=== PATIENT | male | born 1985 ===

== ENCOUNTER 2018-07-13 18:02 | Emergency (ER) | payer MEDICAID ==
[2018-07-13 18:04] VITALS: BMI 29.0
[2018-07-13] MEDS ORDERED: Sodium Chloride 0.9% 1,000 ML IV STA (18:29)
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
[2018-07-13 18:31] VITALS: RESP 18; TEMP 98.8; O2SAT 98
[2018-07-13 19:10] LABS: BASO # 0.02 K/mm3 (0.0-2.0); BASO % 0.2 % (0.0-3.0); EOS # 0.1 (0.0-0.7); GRAN # 8.56 (1.4-6.5); GRAN % 76.2 % (50.0-68.0); HEMOGLOBIN 13.5 g/dL (14.0-18.0); LYMPH % 17.3 % (22.0-35.0); MEAN CELL VOLUME 83.5 fl (80.0-105.0); MEAN CORPUSCULAR HEMOGLOBIN 27.8 pg (25.0-35.0); MEAN CORPUSCULAR HGB CONC 33.3 g/dl (31.0-37.0); MEAN PLATELET VOLUME 9.3 fl (7.0-11.0); MONO # 0.6 (0.1-0.6); MONO % 5.3 % (1.0-6.0); RBC 4.86 10^6/uL (3.5-6.1); RED CELL DISTRIBUTION WIDTH 13.2 % (11.5-14.5); WHITE BLOOD COUNT 11.2 10^3/uL (4.5-11.0)
[2018-07-13 19:22] LABS: ACETAMINOPHEN < 10.0 ug/ml (10.0-20.0); ALBUMIN 4.6 g/dL (3.0-4.8); BLOOD UREA NITROGEN 16 mg/dL (7-21); CALCIUM 9.8 mg/dL (8.4-10.5); GFR NON-AFRICAN AMERICAN > 60; SALICYLATE < 1 mg/dL (2.0-20.0)
[2018-07-13 19:23] LABS: ALB/GLOB RATIO 1.5 (1.1-1.8); ALT/SGPT 29 U/L (7-56); AST/SGOT 27 U/L (17-59)
[2018-07-13] MEDS ORDERED: TDAP Vaccine 0.5 mL Syr IM ONE (20:22)
--- NOTE | 2018-07-13 21:23 | ED PDOC ---
Physical Exam Vital Signs Temp Pulse Resp BP Pulse Ox 07/13/18 18:22 98.8 F 124 H 18 169/88 H 98 Medical Decision Making ED Course and Treatment: 07/13/18 21:00 Case endorsed to me by Dr. Gross, pending CT, urine drug screen, reassessment, and disposition. 07/13/18 22:16 CT Head: BRAIN No acute intraparenchymal hemorrhage. No mass lesion. No CT evidence for acute territorial infarct. No midline shift or extra-axial collections. VENTRICLES: No hydrocephalus. ORBITS: The orbits are unremarkable. SINUSES AND MASTOIDS: The paranasal sinuses and mastoid air cells are clear. BONES: No fracture. SOFT TISSUES: Unremarkable. IMPRESSION: No acute intracranial abnormality. Electronically signed on Jul 13, 2018 10:08:56 PM EST by: Rolo Ferrara M.D., PHANI Certified By ABR & [employer] Fellowship Trained MRI and CT Specialist CT Maxillofacial: BONES: No acute fracture or aggressive appearing osseous lesion. The mandible is intact. SOFT TISSUES: The soft tissues are unremarkable. SINUSES: The sinuses are clear. ORBITS: The orbits are normal. No retrobulbar hematoma or mass. IMPRESSION: Unremarkable maxillofacial CT. Electronically signed on Jul 13, 2018 10:09:54 PM EST by: Rolo Ferrara M.D., PHANI Certified By ABR & [employer] Fellowship Trained MRI and CT Specialist Re-evaluation Time: 05:30 Reassessment Condition: Re-examined, Improved - Lab Interpretations Lab Results: 07/13/18 19:01 07/13/18 19:01 Lab Results 07/13/18 19:01: Alcohol, Quantitative < 10 07/13/18 19:01: Salicylates < 1 L, Acetaminophen < 10.0 L 07/13/18 19:01: Sodium 141, Potassium 3.9, Chloride 107, Carbon Dioxide 28, Anion Gap 11, BUN 16, Creatinine 1.1, Est GFR ( Amer) > 60, Est GFR (Non- Af Amer) > 60, Random Glucose 100, Calcium 9.8, Total Bilirubin 0.4, AST 27, ALT 29, Alkaline Phosphatase 63, Total Protein 7.6, Albumin 4.6, Globulin 3.0, Albumin/Globulin Ratio 1.5 07/13/18 19:01: WBC 11.2 H, RBC 4.86, Hgb 13.5 L, Hct 40.6 L, MCV 83.5, MCH 27.8, MCHC 33.3, RDW 13.2, Plt Count 243, MPV 9.3, Gran % 76.2 H, Lymph % (Auto) 17.3 L, [place] % (Auto) 5.3, Eos % (Auto) 1.0 L, Baso % (Auto) 0.2, Gran # 8.56 H, Lymph # (Auto) 2.0, [place] # (Auto) 0.6, Eos # (Auto) 0.1, Baso # (Auto) 0.02 - RAD Interpretation Radiology Orders: 07/13/18 18:16 ORBITS/ FACIALS W/O CONTRAST [CT] Stat 07/13/18 20:47 HEAD W/O CONTRAST [CT] Stat 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 Ulcer: No History Surgical Site Infection Following: None - Disposition Have Diagnosis and Disposition been Completed?: Yes Diagnosis: Agitation, Laceration of face, Substance abuse Disposition: HOME/ ROUTINE Disposition Time: 05:30 Condition: GOOD Discharge Instructions (ExitCare): Laceration Repair With Glue (DC), Drug Abuse and Drug Addiction (DC) Additional Instructions: Pt medically cleared for incarceration. Referrals: Paula Armijo MD [Primary Care Provider] - Follow up with primary Katja Lopez MD [Medical Doctor] - Follow up with primary Forms: [employer] ([place])
[2018-07-14 02:12] LABS: PH,URINE 7.5 (4.7-8.0); URINE BILIRUBIN NEGATIVE (NEGATIVE); URINE BLOOD NEGATIVE (NEGATIVE); URINE GLUCOSE (UA) NEGATIVE (NEGATIVE); URINE LEUKOCYTE ESTERASE NEGATIVE Leu/uL (NEGATIVE); URINE PROTEIN NEGATIVE mg/dL (<30 mg/dL); URINE UROBILINOGEN 0.2 E.U./dL (<1 E.U./dL)
[2018-07-14 02:30] LABS: URINE APPEARANCE CLEAR (CLEAR); URINE COLOR YELLOW (YELLOW)
[2018-07-14 02:35] LABS: BARBITURATES, UR NEGATIVE (NEGATIVE); BENZODIAZEPINES, UR NEGATIVE (NEGATIVE); OPIATES, UR NEGATIVE (NEGATIVE); PHENCYCLIDINE, UR POSITIVE (NEGATIVE)
[2018-07-14 06:15] VITALS: BP 157/81; PULSE 90
--- NOTE | 2018-07-14 08:49 | CT ---
Date of service: 07/13/2018 PROCEDURE: CT HEAD WITHOUT CONTRAST. HISTORY: ALTERED MENTAL STATUS COMPARISON: None available. TECHNIQUE: Axial computed tomography images were obtained through the head/brain without intravenous contrast. Supplemental Coronal and Sagittal projections created and reviewed. Radiation dose: Total exam DLP = 942.43 mGy-cm. This CT exam was performed using one or more of the following dose reduction techniques: Automated exposure control, adjustment of the mA and/or kV according to patient size, and/or use of iterative reconstruction technique. FINDINGS: HEMORRHAGE: No intracranial hemorrhage. BRAIN: No mass effect or edema. No atrophy or chronic microvascular ischemic changes. VENTRICLES: Unremarkable. No hydrocephalus. CALVARIUM: Unremarkable. PARANASAL SINUSES: Unremarkable as visualized. No significant inflammatory changes. MASTOID AIR CELLS: Unremarkable as visualized. No inflammatory changes. OTHER FINDINGS: None. IMPRESSION: No acute intracranial abnormalities. No significant findings to account for the clinical presentation. Concordant results (preliminary interpretation) provided by [employer]. Procedure Completed: 21:52. Preliminary Report: Dictated and Authenticated: 22:08. Final Interpretation: 08:45. July 14, 2018
--- NOTE | 2018-07-14 08:50 | CT ---
Date of service: 07/13/2018 PROCEDURE: CT MAXILLOFACIAL BONES WITHOUT CONTRAST HISTORY: r eyebrow swelling COMPARISON: None available. TECHNIQUE: Contiguous axial CT images of the maxillofacial bones were obtained. Coronal and sagittal reformats were generated. Radiation dose: Total exam DLP = 702.17 mGy-cm. This CT exam was performed using one or more of the following dose reduction techniques: Automated exposure control, adjustment of the mA and/or kV according to patient size, and/or use of iterative reconstruction technique. FINDINGS: NASAL BONES: Unremarkable. ORBITS: Unremarkable. PARANASAL SINUSES/ MASTOIDS: Clear. MAXILLA: Unremarkable. MANDIBLE/ TEMPOROMANDIBULAR JOINTS: Unremarkable. SKULL BASE: Unremarkable. TEMPORAL BONES: Middle ears and mastoid grossly unremarkable. OTHER FINDINGS: None. IMPRESSION: Unremarkable non contrast enhanced CT of the maxillofacial bones. Concordant results (preliminary interpretation) provided by [facility]. Procedure Completed: 21:54 Preliminary Report: Dictated and Authenticated: 22:09. Final Interpretation: 08:46. July 14, 2018
--- NOTE | 2018-07-14 13:36 | CARD ---
APPROVED REPORT Date of service: 07/13/2018 EKG Measurement Heart [id number] <Conclusion> Sinus tachycardia LVH by voltage, could be a normal variant.
== END 2018-07-14 06:20 | disposition home or self-care (01) ==
LOC: MERGE 18:02 → ED 18:02
DX: R45.1 Restlessness and agitation (principal); F19.10 Other psychoactive substance abuse, uncomplicated; S01.111A Laceration without foreign body of right eyelid and periocular area, initial encounter; X58.XXXA Exposure to other specified factors, initial encounter; Y92.9 Unspecified place or not applicable; Z65.3 Problems related to other legal circumstances